=== PATIENT | female | born 1990 | race Caucasian/White ===

== ENCOUNTER 2016-09-05 12:42 | Emergency (ER) | payer OTHER ==
[~2016-09-05] VITALS: Ht 157.5 cm; Wt 81.6 kg
[~2016-09-05 12:42] MED LIST: BACTRIM DS TAB1 EACH PO; CEPHALEXIN500 M3 PO; CLONAZEPAM0.5 M2 PO; CLOTRIMAZOLE15 GM; DILAUDID2 M1 PO; HYDROCODON-ACE1 EAC2 PO; LOTRIMIN AF12 GM TOP; MACROBID100 MG PO; ONDANSETRON8 MG PO; PERCOCET 5-3251 EACH PO; PRENATAL PLUS1 TA1 PO; PROAIR HFA8.5 GM INH; SPRINTEC 28 DA1 EACH; SULFAMETHOXAZO1 EAC1 PO; TRAMADOL HCL50 M1 PO; ZOFRAN ODT4 M1 PO; [UNRECOGNIZED DRUG - OTHER] PO
--- NOTE | 2016-09-05 13:02 | ED GI/GU/ABDOMINAL COMPLAINT ---
History of Present Illness General Chief Complaint: Abdominal Pain/Flank Pain Stated Complaint: ABD PAIN, X 2 DAYS Source: patient Exam Limitations: no limitations Vital Signs & Intake/Output Vital Signs & Intake/Output Vital Signs Date Time Temp Pulse Resp B/P B/P Pulse O2 O2 Flow FiO2 Mean Ox Delivery Rate 09/05 1607 98.1 100 16 120/67 100 Room Air 09/05 1249 98.8 96 15 135/77 98 Room Air Room Air Allergies Coded Allergies: ciprofloxacin (Mild, ANAPHYLAXIS 09/05/16) ondansetron (From ZOFRAN ( HYDROCHLORIDE)) (Mild, RASH 09/05/16) cephalexin (From KEFLEX) (MINOR 09/05/16) ibuprofen (RASH 09/05/16) sulfamethoxazole (From BACTRIM) (RASH 09/05/16) trimethoprim (From BACTRIM) (RASH 09/05/16) Uncoded Allergies: MOLD (ASTHMA ATTACK 07/28/15) Reconcile Medications Albuterol Sulfate (Proair Hfa) 8.5 GM HFA.AER.AD 2 PUF INH Q4-6 PRN PRN ASTHMA Cephalexin 500 MG CAPSULE 1 CAP PO AD ANTIBIOTIC (Reported) Clotrimazole (Unknown Strength) CREAM..G. (Unknown Dose) UNKNOWN (Reported) Hydrocodone/Acetaminophen (Hydrocodon-Acetaminophen 5-325) 1 EACH TABLET 1 TAB PO PRN PAIN (Reported) Hydromorphone HCl (Dilaudid) 2 MG TABLET 1 TAB PO BIDP PRN PAIN Oxycodone HCl/Acetaminophen (Percocet 5-325 MG Tablet) 5 MG-325 MG TABLET 1 TAB PO BID PRN PAIN Sulfamethoxazole/Trimethoprim (Sulfamethoxazole-Tmp Ds Tablet) 1 EACH TABLET 1 TAB PO BID ANTIBIOTIC (Reported) Triage Note: PT TO ED FOR SEVERE ABD PAIN THAT STARTED A FEW DAYS AGO BUT IT'S GETTING WORSE. PT THOUGHT IT WAS FROM ENDOMETRIOSIS BUT IT FEELS DIFFERENT. +N/-V/-D. LNBM TODAY WITHOUT BLOOD IN STOOL. Triage Nurses Notes Reviewed? yes ? n Is pt currently ? No HPI: 25-year-old female arrived to triage to room 11 for evaluation of lower abdominal pain which has been chronic. She has a history of polycystic ovarian syndrome, pelvic adhesions uterus and ovaries. Also has a history of endometriosis and is under the care of [facility] ATTENDANT Dr. Gage. She had an abdominal ultrasound 1 month ago that showed adhesions and PCOS. She is now considering hysterectomy due to symptoms. Today Mayela is here for pain control. She has some nausea but no vomiting, diarrhea. Last bowel movement was this morning which was normal, soft soft, brown. She last ate this morning with no issues. Pain is a cramping, sharp stabbing type pain all throughout her lower abdomen. He denies any fever or chills. Pain is moderate at this time. She denies any urinary symptoms. (SY GALVAN APRN) Past History Travel History Traveled to [place] past 21 day No Medical History Any Pertinent Medical History? see below for history Neurological: NONE Cardiovascular: hypertension Respiratory: asthma Gastrointestinal: ENDOMETRIOSIS POLYCYSTIC OVARIAN SYNDRO bowel obstruction? 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 No (SY GALVAN APRN) Review of Systems Review of Systems Constitutional: Reports: no symptoms. EENTM: Reports: no symptoms. Respiratory: Reports: no symptoms. Cardiovascular: Reports: no symptoms. GI: Reports: abdominal pain, nausea. Genitourinary: Reports: no symptoms. Musculoskeletal: Reports: no symptoms. Skin: Reports: no symptoms. Neurological/Psychological: Reports: no symptoms. Hematologic/Endocrine: Reports: no symptoms. Immunologic/Allergic: Reports: no symptoms. All Other Systems: Reviewed and Negative (SY GALVAN APRN) Physical Exam Physical Exam General Appearance: well developed/nourished, no apparent distress, alert, awake , mild distress Head: atraumatic, normal appearance Eyes: Bilateral: normal appearance, PERRL, EOMI. Respiratory: normal breath sounds, chest non-tender, no respiratory distress Cardiovascular: regular rate/rhythm, normal peripheral pulses Peripheral Pulses: 2+ radial (R), 2+ radial (L) Gastrointestinal: normal bowel sounds, soft, tenderness (lOWER QUADRANTS) Back: normal inspection, normal range of motion Extremities: normal range of motion Neurologic/Psych: no motor/sensory deficits, awake, alert, oriented x 3, normal gait, normal mood/affect Skin: intact, normal color, warm/dry Core Measures ACS in differential dx? No Severe Sepsis Present: No Septic Shock Present: No (SY GALVAN APRN) Progress Differential Diagnosis: endometritis, UTI/pyelo, acute on chronic abdominal pain , PCOS, uterine/ovarian adhesions Plan of Care: Orders Procedure Date/time Status Add-on Test (ER Only) 09/05 1353 Active CULTURE,URINE 09/05 1315 Active URINALYSIS 09/05 125 Complete LIPASE 09/05 1255 Complete HUMAN BETA HCG SCREEN 09/05 125 Complete COMPREHENSIVE METABOLIC PANEL 09/05 125 Complete CBC WITHOUT DIFFERENTIAL 09/05 1254 Complete AMYLASE 09/05 125 Complete Laboratory Tests 09/05/16 1315: Urinalysis LIGHT H, Urine Color YEL, Urine Clarity CLDY H, Urine pH 6.0, Ur Specific [place] 1.010, Urine Protein NEG, Urine Ketones NEG, Urine Nitrite NEG, Urine Bilirubin NEG, Urine Urobilinogen 0.2, Ur Leukocyte Esterase SMALL H, Ur Microscopic SEDIMENT EXAMINED, Urine RBC 3-5, Urine WBC 3-5 H, Ur Epithelial Cells MANY H, Urine Bacteria PACKD H, Hyaline Casts 3-5 H, Granular Casts 1-3 H, Urine Mucus FEW, Micro UA Comment , Urine Hemoglobin TRACE-INTACT, Urine Glucose NEG 09/05/16 1311: Anion Gap 12, Estimated GFR > 60, BUN/Creatinine Ratio 17.1, Glucose 95, Calcium 9.3, Total Bilirubin 0.7, AST 17, ALT 37, Alkaline Phosphatase 80, Total Protein 7.7, Albumin 4.8, Globulin 2.9, Albumin/Globulin Ratio 1.7, Amylase 41, Lipase 69, Total Beta HCG NEGATIVE, CBC w Diff NO MAN DIFF REQ, RBC 5.05, MCV 83.4, MCH 27.9, RDW 14.5, MPV 8.2, Gran % 63.7, Lymphocytes % 26.2, Monocytes % 7.5, Eosinophils % 2.2, Basophils % 0.4, Absolute Granulocytes 5.1, Absolute Lymphocytes 2.1, Absolute Monocytes 0.6, Absolute Eosinophils 0.2, Absolute Basophils 0, PUBS MCHC 33.5 Microbiology 09/05 1315 URINE ROUT: Urine Culture - RECD Initial ED EKG: none Comments: RECENT U/S THROUGH DR. MARYCHUY DUBOSE AT [facility]- 08/06/2016 UTERINE DIDELPHYS WITH SOLITARY KIDNEY, POLYCYSTIC OVARIES, PELVIC ADHESIVE DISEASE. 2:17 PM patient reports no change in nausea or pain after Percocet and Phenergan. Abdominal pain continue so we will get a CAT scan of abdomen and pelvis along with IV fluids and IV morphine. PATIENT: MAYELA PRESCOTT PRESENT AGE: 25 PATIENT ACCOUNT NO: [id number] : 90 LOCATION: [facility] ORDERING PHYSICIAN: SY GALVAN APRN SERVICE DATE: 09/05/16 EXAM TYPE: CAT - CT ABD & PELVIS W IV CONTRAST EXAMINATION: CT ABDOMEN AND PELVIS WITH CONTRAST CLINICAL INFORMATION: Transabdominal pain. History of PCL less. One kidney. COMPARISON: Most recent CT abdomen and pelvis 12/11/2015 TECHNIQUE: Multidetector volumetric imaging was performed of the abdomen and pelvis before and after the IV administration of 95 mL of Optiray 320 intravenous contrast. Sagittal and coronal reformatted images were obtained on the technologist's workstation. DLP: 340 mGy-cm FINDINGS: LUNG BASES: The visualized lung bases are unremarkable. LIVER, GALLBLADDER, AND BILIARY TREE: The liver is normal in size, shape, and attenuation. No focal hepatic lesion or biliary ductal dilatation is present. The gallbladder is unremarkable with no evidence of radiopaque gallstones, gallbladder wall thickening, or obvious pericholecystic inflammatory changes. PANCREAS: Unremarkable. SPLEEN: Unremarkable. ADRENAL GLANDS: Unremarkable. KIDNEYS AND URETERS: The right kidney is absent. The left kidney enhances homogeneously. There is no hydronephrosis. No renal lesion identified. BLADDER: Unremarkable. GASTROINTESTINAL TRACT: The stomach and small large bowel within the upper abdomen is unremarkable. The distal ileum demonstrates mild hyperenhancement of the wall with mild overall distention. A few nonspecific lymph nodes identified in the right lower quadrant. The appendix is not identified. There are no specific infiltrate changes within the right lower quadrant. There is no free fluid or free air within the abdomen. ABDOMINAL WALL: No significant hernia is appreciated. LYMPH NODES: Normal. VASCULAR: Unremarkable. PELVIC VISCERA: Bicornuate uterus unchanged. Trace amount of free fluid within the pelvis is within physiologic range. The ovaries are grossly unremarkable. OSSEOUS STRUCTURES: There are bilateral pars defects at L5-S1 without associated spondylolisthesis. IMPRESSION: 1. No acute findings to explain intra-abdominal or pelvic pain. 2. Mild prominence of the distal ileum. No secondary signs to definitively suggest underlying inflammatory bowel disease. 3. Bicornuate uterus. 4. Unchanged bilateral pars defects at L5-S1 without associated spondylolisthesis. 5. Solitary left kidney. DICTATED BY: HOLLY CHERRY MD DATE/TIME DICTATED:09/05/161516 HUMAN RESOURCES OPERATIONS DIRECTOR:JADE DATE/TIME TRANSCRIBED:09/05/161516 CONFIDENTIAL, DO NOT COPY WITHOUT APPROPRIATE AUTHORIZATION. <Electronically signed in Other Vendor System> SIGNED BY: HOLLY CHERRY MD 09/05/161527 Discussed CAT scan results with the patient and discussed the need for her to follow up with her MIXER ATTENDANT for further treatment for her chronic abdominal pain. Case discussed with Dr. Pacheco (SY GALVAN APRN) Departure Departure Time of Disposition: 1609 Disposition: HOME OR SELF CARE Condition: Stable Clinical Impression Primary Impression: Chronic abdominal pain Referrals: KATHIA BORJA MD (PCP/Family) Additional Instructions: Please follow up with MIXER ATTENDANT at [facility]. Percocet has needed for pain. Departure Forms: Customer Survey General Discharge Information Prescriptions: Current Visit Scripts Oxycodone HCl/Acetaminophen (Percocet 5-325 MG Tablet) 1 TAB PO BID PRN PAIN #10 TAB (SY GALVAN APRN) PA/KNITTING MACHINE FIXER Co-Sign Statement Statement: ED Attending supervision documentation- [] I saw and evaluated the patient. I have also reviewed all the pertinent lab results and diagnostic results. I agree with the findings and the plan of care as documented in the PA's/KNITTING MACHINE FIXER's documentation. [X] I have reviewed the ED Record and agree with the PA's/KNITTING MACHINE FIXER's documentation. [] Additions or exceptions (if any) to the PAs/KNITTING MACHINE FIXER's note and plan are summarized below: [] (MILAGRO FARIAS,TORI Johnson
[2016-09-05 13:25] LABS: ABSOLUTE BASOPHIL COUNT 0 /CUMM (0.0-0.2); ABSOLUTE EOSINOPHIL COUNT 0.2 /CUMM (0.0-0.7); ABSOLUTE GRANULOCYTE CT 5.1 /CUMM (1.4-6.5); ABSOLUTE LYMPH COUNT 2.1 /CUMM (1.2-3.4); ABSOLUTE MONOCYTE COUNT 0.6 /CUMM (0.10-0.60); BASOPHIL % 0.4 % (0.0-2.0); EOSINOPHIL % 2.2 % (0-5); GRANULOCYTE % 63.7 % (42.2-75.2); HEMATOCRIT 42.1 % (37-47); MEAN CORPUSCULAR HGB 27.9 PG (27.0-31.0); MEAN CORPUSCULAR HGB CONC 33.5 G/DL (33.0-37.0); MEAN CORPUSCULAR VOLUME 83.4 FL (81.0-99.0); MEAN PLATELET VOLUME 8.2 FL (7.4-10.4); PLATELET COUNT 235 /CUMM (130-400); RBC DISTRIBUTION WIDTH 14.5 % (11.5-14.5); RED BLOOD CELL CT 5.05 /CUMM (4.20-5.40)
--- NOTE | 2016-09-05 15:28 | CT SCAN REPORT ---
EXAMINATION: CT ABDOMEN AND PELVIS WITH CONTRAST CLINICAL INFORMATION: Transabdominal pain. History of PCL less. One kidney. COMPARISON: Most recent CT abdomen and pelvis 12/11/2015 TECHNIQUE: Multidetector volumetric imaging was performed of the abdomen and pelvis before and after the IV administration of 95 mL of Optiray 320 intravenous contrast. Sagittal and coronal reformatted images were obtained on the technologist's workstation. DLP: 340 mGy-cm FINDINGS: LUNG BASES: The visualized lung bases are unremarkable. LIVER, GALLBLADDER, AND BILIARY TREE: The liver is normal in size, shape, and attenuation. No focal hepatic lesion or biliary ductal dilatation is present. The gallbladder is unremarkable with no evidence of radiopaque gallstones, gallbladder wall thickening, or obvious pericholecystic inflammatory changes. PANCREAS: Unremarkable. SPLEEN: Unremarkable. ADRENAL GLANDS: Unremarkable. KIDNEYS AND URETERS: The right kidney is absent. The left kidney enhances homogeneously. There is no hydronephrosis. No renal lesion identified. BLADDER: Unremarkable. GASTROINTESTINAL TRACT: The stomach and small large bowel within the upper abdomen is unremarkable. The distal ileum demonstrates mild hyperenhancement of the wall with mild overall distention. A few nonspecific lymph nodes identified in the right lower quadrant. The appendix is not identified. There are no specific infiltrate changes within the right lower quadrant. There is no free fluid or free air within the abdomen. ABDOMINAL WALL: No significant hernia is appreciated. LYMPH NODES: Normal. VASCULAR: Unremarkable. PELVIC VISCERA: Bicornuate uterus unchanged. Trace amount of free fluid within the pelvis is within physiologic range. The ovaries are grossly unremarkable. OSSEOUS STRUCTURES: There are bilateral pars defects at L5-S1 without associated spondylolisthesis. IMPRESSION: 1. No acute findings to explain intra-abdominal or pelvic pain. 2. Mild prominence of the distal ileum. No secondary signs to definitively suggest underlying inflammatory bowel disease. 3. Bicornuate uterus. 4. Unchanged bilateral pars defects at L5-S1 without associated spondylolisthesis. 5. Solitary left kidney.
[2016-09-05 16:07] VITALS: BP 120/67
[2016-09-05] MEDS ORDERED: PERCOCET 5-3251 EACH PO (16:10)
== END 2016-09-05 16:17 ==
LOC: ERH 12:42
PROVIDERS: Nurse Practitioner Family
DX: G89.29 Other chronic pain (principal); R10.31 Right lower quadrant pain; R10.32 Left lower quadrant pain
CPT/HCPCS: 74177; 81001; 87086; 96374; 96375; J2405; J2765

== ENCOUNTER 2016-10-06 22:52 | Emergency (ER) | payer OTHER ==
[~2016-10-06] VITALS: Ht 160 cm; Wt 84.4 kg
--- NOTE | 2016-10-07 00:14 | ED GI/GU/ABDOMINAL COMPLAINT ---
History of Present Illness General Chief Complaint: Female Urogenital Problems Stated Complaint: PT HAS A OPERATION AND HAVING PAIN Source: patient, old records Exam Limitations: no limitations Vital Signs & Intake/Output Vital Signs & Intake/Output Vital Signs Date Time Temp Pulse Resp B/P B/P Pulse O2 O2 Flow FiO2 Mean Ox Delivery Rate 10/07 0442 79 22 122/77 99 10/06 2324 98.0 77 16 121/80 98 Room Air ED Intake and Output 10/07 0000 10/06 1200 Intake Total Output Total Balance Patient 186 lb Weight Weight Reported by Patient Measurement Method Allergies Coded Allergies: ciprofloxacin (Mild, ANAPHYLAXIS 09/05/16) ondansetron (From ZOFRAN ( HYDROCHLORIDE)) (Mild, RASH 09/05/16) cephalexin (From KEFLEX) (MINOR 09/05/16) ibuprofen (RASH 09/05/16) sulfamethoxazole (From BACTRIM) (RASH 09/05/16) trimethoprim (From BACTRIM) (RASH 09/05/16) Uncoded Allergies: MOLD (ASTHMA ATTACK 07/28/15) Reconcile Medications Albuterol Sulfate (Proair Hfa) 8.5 GM HFA.AER.AD 2 PUF INH Q4-6 PRN PRN ASTHMA Oxycodone HCl 5 MG CAPSULE 1 CAP PO Q6P PAIN Triage Note: TRIAGE: HYSTERECTOMY APPROX 10 DAYS AGO AT [facility] BY DR DELONG AND NOW HAVING SEVERE PAIN TO RLQ/GROIN AREA, WORSE WITH MOVING OR WALKING. DENIES PAIN TO INCISIONAL SITES. REPORTS PAIN BEGAN AFTER HAVING INTERCOURSE YESTERDAY AND HAS BEEN GETTING WORSE. TOOK TYLENOL 2 HOURS AGO WITHOUT RELIEF. UNABLE TO TAKE MOTRIN. AFEBRILE C/O SLIGHT DISCOMFORT WITH URINATION. PT NOTES BLOOD WHEN SHE WIPES AFTER GOING TO THE BATHROOM. ONLY HAS LEFT KIDNEY. HX APPENDECTOMY Triage Nurses Notes Reviewed? yes ? N Is pt currently ? No HPI: Patient is 10 days postop from laparoscopic hysterectomy and lysis of adhesions. The surgery was done at [facility]. Patient states that she had intercourse yesterday and has been having increasing pain to the suprapubic area since then. The pain is constant and gradually increasing. The pain is sharp and stabbing. The pain is 10 out of 10. There is no fevers or chills. There is no nausea or vomiting. There is no radiation of the pain. There are no aggravating or mitigating factors. There is no drainage from the incision sites. Patient called her programming instructor who instructed her to go to the closest emergency room. Past History Travel History Traveled to [place] past 21 day No Medical History Any Pertinent Medical History? see below for history Neurological: NONE EENT: NONE Cardiovascular: hypertension Respiratory: asthma Gastrointestinal: ENDOMETRIOSIS POLYCYSTIC OVARIAN SYNDRO bowel obstruction? 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 No Review of Systems Review of Systems Constitutional: Reports: no symptoms. EENTM: Reports: no symptoms. Respiratory: Reports: no symptoms. Cardiovascular: Reports: no symptoms. GI: Reports: see HPI, abdominal pain. Genitourinary: Reports: no symptoms. Musculoskeletal: Reports: no symptoms. Skin: Reports: no symptoms. Neurological/Psychological: Reports: no symptoms. Hematologic/Endocrine: Reports: no symptoms. Immunologic/Allergic: Reports: no symptoms. All Other Systems: Reviewed and Negative Physical Exam Physical Exam General Appearance: well developed/nourished, alert, awake, anxious, moderate distress Head: atraumatic, normal appearance Eyes: Bilateral: PERRL, EOMI. Ears, Nose, Throat, Mouth: hearing grossly normal, moist mucous membrane Neck: normal inspection, supple, full range of motion Respiratory: normal breath sounds, chest non-tender, no respiratory distress, lungs clear Cardiovascular: regular rate/rhythm, normal peripheral pulses Gastrointestinal: normal bowel sounds, soft, no organomegaly, tenderness ( SUPRAPUBIC), NO REBOUND OR GUARDING, LAPROSCOPIC INCISIONS C/D/I, NO SIGNS OF INFECTION Back: normal inspection, normal range of motion Extremities: normal range of motion Neurologic/Psych: no motor/sensory deficits, awake, alert, oriented x 3, normal gait, normal mood/affect Skin: intact, normal color, warm/dry Core Measures ACS in differential dx? No Severe Sepsis Present: No Septic Shock Present: No Progress Differential Diagnosis: bowel obstruction, ischemic bowel, inflamm bowel dis, POST OP INFECTION POST OP PAIN Plan of Care: Orders Procedure Date/time Status COMPREHENSIVE METABOLIC PANEL 10/07 13 Complete CBC WITHOUT DIFFERENTIAL 10/07 13 Complete URINALYSIS 10/06 2324 Complete Laboratory Tests 10/07/16 0020: Anion Gap 9, Estimated GFR > 60, BUN/Creatinine Ratio 15.7, Glucose 86, Calcium 9.3, Total Bilirubin 0.4, AST 17, ALT 34, Alkaline Phosphatase 81, Total Protein 7.2, Albumin 4.6, Globulin 2.6, Albumin/Globulin Ratio 1.8, CBC w Diff NO MAN DIFF REQ, RBC 4.51, MCV 82.8, MCH 27.8, RDW 13.5, MPV 7.9, Gran % 64.8, Lymphocytes % 25.1, Monocytes % 6.9, Eosinophils % 2.2, Basophils % 1.0, Absolute Granulocytes 7.2 H, Absolute Lymphocytes 2.8, Absolute Monocytes 0.8 H, Absolute Eosinophils 0.2, Absolute Basophils 0.1, PUBS MCHC 33.5 10/06/16 2308: Urine Color YEL, Urine Clarity HAZY H, Urine pH 6.5, Ur Specific [place] 1.020, Urine Protein TRACE H, Urine Ketones NEG, Urine Nitrite NEG, Urine Bilirubin NEG, Urine Urobilinogen 0.2, Ur Leukocyte Esterase MOD H, Ur Microscopic SEDIMENT EXAMINED, Urine RBC 3-5, Urine WBC 15-25 H, Ur Epithelial Cells MANY H, Urine Bacteria MOD H, Urine Hemoglobin MOD H, Urine Glucose NEG Diagnostic Imaging: Viewed by Me: CT Scan. Discussed w/RAD: CT Scan. Radiology Impression: PATIENT: MAYELA PRESCOTT PRESENT AGE: 25 PATIENT ACCOUNT NO: [id number] : 90 LOCATION: [facility] ORDERING PHYSICIAN: TORI HUMPHREY MD SERVICE DATE: 10/07/16 EXAM TYPE: CAT - CT ABD & PELVIS W/O IV CONTRAS EXAMINATION: CT ABDOMEN AND PELVIS WITHOUT CONTRAST CLINICAL INFORMATION: Suprapubic pain 10 days after hysterectomy and lysis of adhesions COMPARISON: 09/05/2016 TECHNIQUE: Multidetector volumetric imaging was performed from the superior aspect of the liver through the pubic symphysis. Sagittal and coronal reformatted images were obtained on the technologist's workstation. DLP: 416.29 mGy-cm FINDINGS: LUNG BASES: The visualized lung bases are unremarkable. LIVER, GALLBLADDER, AND BILIARY TREE: The liver is normal in size, shape, and attenuation. No focal hepatic lesion or biliary ductal dilatation is present. The gallbladder is unremarkable with no evidence of radiopaque gallstones, gallbladder wall thickening, or obvious pericholecystic inflammatory changes. PANCREAS: Unremarkable. SPLEEN: Unremarkable. ADRENAL GLANDS: Unremarkable. KIDNEYS AND URETERS: The right kidney is absent. The left kidney appears unremarkable without hydronephrosis or calculi. BLADDER: Minimally distended and not well evaluated. GASTROINTESTINAL TRACT: The small and large bowel are unremarkable. The appendix is not visualized. ABDOMINAL WALL: There is subcutaneous stranding in the right anterior abdominal wall, which may reflect sequelae of recent surgery; no discrete abdominal wall collection is seen. LYMPH NODES: No lymphadenopathy is seen, though assessment is somewhat limited in the absence of intravenous contrast. VASCULAR: Unremarkable. PELVIC VISCERA: Patient is status post hysterectomy. There is mild stranding in the lower right aspect of the pelvis. Soft tissue densities in the bilateral adnexa are favored to represent the ovaries. No discrete fluid collection or appreciable free fluid is seen in the pelvis. OSSEOUS STRUCTURES: Bilateral L5 pars defects are noted. There are mild degenerative endplate changes in the lower thoracic spine. IMPRESSION: 1. Mild stranding in the right pelvis, suspected to be postoperative in the setting of recent hysterectomy. No appreciable pelvic free fluid or collection. 2. Subcutaneous stranding in the right anterior abdominal wall suggesting sequelae of recent surgery; no discrete abdominal wall collection. DICTATED BY: GHADA BRISCOE MD DATE/TIME DICTATED:10/07/16257 CASH APPLICATIONS CLERK:JADE DATE/ TIME TRANSCRIBED:10/07/16257 CONFIDENTIAL, DO NOT COPY WITHOUT APPROPRIATE AUTHORIZATION. <Electronically signed in Other Vendor System> SIGNED BY: GHADA BRISCOE MD 10/07/16 0310 Initial ED EKG: none Comments: D/W TANK TRUCK DRIVER FROM [place], MULTIPLE VISITS TO CLINIC FOR PAIN RELATED ISSUES AND THEN WAS READMITTED POST OP FOR PAIN CONTROL. NO BOWEL OBSTRUCTION. Departure Departure Disposition: HOME OR SELF CARE Condition: Stable Clinical Impression Primary Impression: Pelvic pain Referrals: KATHIA BORJA MD (PCP/Family) Additional Instructions: FOLLOW UP WITH YOUR SURGEON TODAY RTURN FOR ANY CONCERNS Departure Forms: Customer Survey General Discharge Information Prescriptions: Current Visit Scripts Oxycodone HCl 1 CAP PO Q6P #20 CAP
[2016-10-07 00:31] LABS: ABSOLUTE BASOPHIL COUNT 0.1 /CUMM (0.0-0.2); ABSOLUTE EOSINOPHIL COUNT 0.2 /CUMM (0.0-0.7); ABSOLUTE GRANULOCYTE CT 7.2 /CUMM (1.4-6.5); ABSOLUTE LYMPH COUNT 2.8 /CUMM (1.2-3.4); ABSOLUTE MONOCYTE COUNT 0.8 /CUMM (0.10-0.60); EOSINOPHIL % 2.2 % (0-5); GRANULOCYTE % 64.8 % (42.2-75.2); HEMATOCRIT 37.3 % (37-47); MEAN CORPUSCULAR HGB 27.8 PG (27.0-31.0); MEAN CORPUSCULAR HGB CONC 33.5 G/DL (33.0-37.0); MEAN CORPUSCULAR VOLUME 82.8 FL (81.0-99.0); MEAN PLATELET VOLUME 7.9 FL (7.4-10.4); PLATELET COUNT 289 /CUMM (130-400); RBC DISTRIBUTION WIDTH 13.5 % (11.5-14.5); RED BLOOD CELL CT 4.51 /CUMM (4.20-5.40); WHITE BLOOD CELL COUNT 11.1 /CUMM (4.8-10.8)
--- NOTE | 2016-10-07 03:10 | CT SCAN REPORT ---
EXAMINATION: CT ABDOMEN AND PELVIS WITHOUT CONTRAST CLINICAL INFORMATION: Suprapubic pain 10 days after hysterectomy and lysis of adhesions COMPARISON: 09/05/2016 TECHNIQUE: Multidetector volumetric imaging was performed from the superior aspect of the liver through the pubic symphysis. Sagittal and coronal reformatted images were obtained on the technologist's workstation. DLP: 416.29 mGy-cm FINDINGS: LUNG BASES: The visualized lung bases are unremarkable. LIVER, GALLBLADDER, AND BILIARY TREE: The liver is normal in size, shape, and attenuation. No focal hepatic lesion or biliary ductal dilatation is present. The gallbladder is unremarkable with no evidence of radiopaque gallstones, gallbladder wall thickening, or obvious pericholecystic inflammatory changes. PANCREAS: Unremarkable. SPLEEN: Unremarkable. ADRENAL GLANDS: Unremarkable. KIDNEYS AND URETERS: The right kidney is absent. The left kidney appears unremarkable without hydronephrosis or calculi. BLADDER: Minimally distended and not well evaluated. GASTROINTESTINAL TRACT: The small and large bowel are unremarkable. The appendix is not visualized. ABDOMINAL WALL: There is subcutaneous stranding in the right anterior abdominal wall, which may reflect sequelae of recent surgery; no discrete abdominal wall collection is seen. LYMPH NODES: No lymphadenopathy is seen, though assessment is somewhat limited in the absence of intravenous contrast. VASCULAR: Unremarkable. PELVIC VISCERA: Patient is status post hysterectomy. There is mild stranding in the lower right aspect of the pelvis. Soft tissue densities in the bilateral adnexa are favored to represent the ovaries. No discrete fluid collection or appreciable free fluid is seen in the pelvis. OSSEOUS STRUCTURES: Bilateral L5 pars defects are noted. There are mild degenerative endplate changes in the lower thoracic spine. IMPRESSION: 1. Mild stranding in the right pelvis, suspected to be postoperative in the setting of recent hysterectomy. No appreciable pelvic free fluid or collection. 2. Subcutaneous stranding in the right anterior abdominal wall suggesting sequelae of recent surgery; no discrete abdominal wall collection.
[2016-10-07 04:42] VITALS: BP 122/77
[2016-10-07] MEDS ORDERED: OXYCODONE HCL5 M2 PO (04:47)
== END 2016-10-07 04:58 ==
LOC: ERH 22:52
PROVIDERS: Emergency Medicine
DX: R10.2 Pelvic and perineal pain (principal)
CPT/HCPCS: 74176; 81001